=== PATIENT | male | born 1990 | race American Indian/Alaskan Native ===

== ENCOUNTER 2021-12-25 03:15 | Emergency (ER) | payer SELFPAY ==
[2021-12-25] MEDS ORDERED: KETOROLAC 30 MG/1 ML INJ IV ONE (03:56)
[2021-12-25] MEDS ORDERED: MORPHINE 4 MG/1 ML INJ IV ONE (03:56)
--- NOTE | 2021-12-25 03:56 | Emergency Department Report ---
ED Male HPI - General Chief complaint: Urogenital-Male Stated complaint: ERECTION OVER 15HRS Time Seen by Provider: 12/25/21 03:46 Source: patient Mode of arrival: Ambulatory Limitations: No Limitations - History of Present Illness Initial comments: 31 yo male with htn - Related Data Previous Rx's Medication Instructions Recorded Last Taken Type HYDROcodone/APAP 5-325 [[place] 1 each PO Q6HR PRN #12 tablet 12/25/21 Unknown Rx 5/325] Losartan [Cozaar] 25 mg PO QDAY #30 tablet 12/25/21 Unknown Rx cephALEXin [Keflex] 500 mg PO Q12HR #14 cap 12/25/21 Unknown Rx Allergies Allergy/AdvReac Type Severity Reaction Status Date / Time No Known Allergies Allergy Verified 12/25/21 05:31 ED Review of Systems ROS: Stated complaint: ERECTION OVER 15HRS Other details as noted in HPI ED Past Medical Hx - Past Medical History Previous Medical History?: Yes Hx Hypertension: Yes - Surgical History Past Surgical History?: No - Medications Home Medications: Home Medications Medication Instructions Recorded Confirmed Last Taken Type HYDROcodone/APAP 5-325 [[place] 1 each PO Q6HR PRN #12 tablet 12/25/21 Unknown Rx 5/325] Losartan [Cozaar] 25 mg PO QDAY #30 tablet 12/25/21 Unknown Rx cephALEXin [Keflex] 500 mg PO Q12HR #14 cap 12/25/21 Unknown Rx ED Physical Exam - General Limitations: No Limitations General appearance: alert, in no apparent distress - Head Head exam: Present: atraumatic, normocephalic - Eye Eye exam: Present: normal appearance - ENT ENT exam: Present: mucous membranes moist - Neck Neck exam: Present: normal inspection - Respiratory Respiratory exam: Present: normal lung sounds bilaterally. Absent: respiratory distress - Cardiovascular Cardiovascular Exam: Present: regular rate, normal rhythm. Absent: systolic murmur, diastolic murmur, rubs, gallop - GI/Abdominal GI/Abdominal exam: Present: soft, normal bowel sounds - Rectal Rectal exam: Present: deferred - exam: Present: other (fully erect penis, tender) - Extremities Exam Extremities exam: Present: normal inspection - Back Exam Back exam: Present: normal inspection - Neurological Exam Neurological exam: Present: alert, oriented X3 - Psychiatric Psychiatric exam: Present: normal affect, normal mood - Skin Skin exam: Present: warm, dry, intact, normal color. Absent: rash ED Course Vital Signs 12/25/21 03:23 Pulse Rate 88 Respiratory 18 Rate Blood Pressure 121/82 [Right] O2 Sat by Pulse 98 Oximetry - Penile Procedure Consent Obtained: verbal consent, written consent Time Out Performed: Yes Indication: priapism management Procedural Sedation: No Local Anesthesia Used: Lidocaine 2% without EPI Amount of Anesthesia Used (mls): 5 Priapism Management: aspiration, phenylephrine injection, injection (other) Complications: other (hematoma) Patient Tolerated Procedure: well Additional Comments: patient had approximately 75% detumescence, but complete relief of his pain ED Medical Decision Making - Lab Data Result diagrams: 12/25/21 03:56 12/25/21 03:56 Critical care attestation.: If time is entered above; I have spent that time in minutes in the direct care of this critically ill patient, excluding procedure time. ED Disposition Clinical Impression: Priapism Disposition: 01 HOME / SELF CARE / HOMELESS Is pt being admited?: No Does the pt Need Aspirin: No Condition: Stable Additional Instructions: Please call the [place] [facility] number, today, and request an appointment for as soon as possible. Prescriptions: Losartan [Cozaar] 25 mg PO QDAY #30 tablet cephALEXin [Keflex] 500 mg PO Q12HR #14 cap HYDROcodone/APAP 5-325 [[place] 5/325] 1 each PO Q6HR PRN #12 tablet PRN Reason: Pain Referrals: EMMA CASTRO MD [Primary Care Provider] - 3-5 Days NICOLE SAVAGE MD [Staff Physician] - 3-5 Days Time of Disposition: 06:23
[2021-12-25] MEDS ORDERED: SODIUM CHLORIDE 0.9% 1000 ML 1,000 ML IV ONE (03:57)
[2021-12-25 05:03] LABS: Basophils # (Auto) 0.1 K/mm3 (0.0-0.1); Basophils % (Auto) 0.5 % (0.0-1.8); Eosinophils % (Auto) 0.5 % (0.0-4.3); Hematocrit 39.4 % (35.5-45.6); Hemoglobin 13.1 gm/dl (11.8-15.2); Lymphocytes # (Auto) 2.6 K/mm3 (1.2-5.4); Lymphocytes % (Auto) 25.4 % (13.4-35.0); Mean Corpuscular HGB Conc 33 % (32-34); Mean Corpuscular Volume 87 fl (84-94); Monocytes % (Auto) 9.8 % (0.0-7.3); Platelet Count 361 K/mm3 (140-440); Red Blood Count 4.53 M/mm3 (3.65-5.03)
[2021-12-25 05:18] LABS: Blood Urea Nitrogen 5 mg/dL (9-20); Hemolysis Index 6
[2021-12-25] MEDS ORDERED: LIDOCAINE (2%) 20 MG/1 ML VIAL 20 ML MDV INFILTRATI ONE (05:20)
[2021-12-25] MEDS ORDERED: PHENYLEPHRINE 1 MG, SODIUM CHLORIDE P/F VIAL 10 ML 9.9 ML IJ**NOT IV ONE (05:23)
[2021-12-25 05:58] LABS: BUN/Creatinine Ratio 7
[2021-12-25 06:27] VITALS: BP 120/62
[2021-12-25] MEDS ORDERED: POVIDONE-IODINE OINTMENT 28.35 GM TP SCH (08:00)
== END 2021-12-25 06:40 | disposition home or self-care (01) ==
LOC: ED 03:15
DX: N48.30 Priapism, unspecified (principal); I10 Essential (primary) hypertension; Z79.899 Other long term (current) drug therapy
CPT/HCPCS: 36415; 54220; 80048; 85025; 96361; 96374; 96375; 99283; J1885; J2270; J2370; J3490